=== PATIENT | male | born 1950 | race Two or more races ===

== ENCOUNTER → 2017-09-28 | Outpatient (CLI) | payer BC ==
--- NOTE | 2017-09-28 11:21 | Diagnostic Imaging Report ---
PROCEDURE: X-RAY CHEST, TWO VIEWS COMPARISON: None. INDICATIONS: INFLUENZA FINDINGS: Lungs are well-inflated. There is patchy right middle lobe airspace disease as well as patchy opacity in the periphery of the right upper lobe. No pleural effusion or pneumothorax. Cardiomediastinal contour and pulmonary vasculature are within normal limits. No acute osseous abnormality. CONCLUSION: Patchy right middle and upper lobe airspace opacities concerning for multifocal pneumonia. Followup chest radiograph in 8 weeks is suggested to document resolution. Dictated by: Dov Clements M.D. on 09/28/2017 at 11:30 Electronically approved by: Dov Clements M.D. on 09/28/2017 at 11:30
== END ==
LOC: RAD 10:15 → EDBD 10:15
PROVIDERS: ATTEND Internal Medicine Pulmonary Disease
DX: J11.1 Influenza due to unidentified influenza virus with other respiratory manifestations (principal)
CPT/HCPCS: 71020

== ENCOUNTER 2019-01-10 14:54 | Outpatient (RCR) | payer BC | END 2019-01-17 | LOC: PT 14:54 | PROVIDERS: ATTEND Specialist | DX: M47.812 Spondylosis without myelopathy or radiculopathy, cervical region (principal) ==

== ENCOUNTER 2019-02-09 15:00 | Outpatient (RCR) | payer BC | END 2019-02-17 | LOC: PT 15:00 | PROVIDERS: ATTEND Specialist | DX: M47.812 Spondylosis without myelopathy or radiculopathy, cervical region (principal) | CPT/HCPCS: 97535 ==

== ENCOUNTER → 2020-09-16 | Outpatient (CLI) | payer BC, OTHER ==
[~2020-09-16] MED LIST: COVID-19 VACC, MRNA(MODERNA)/PF 100 MCG/0.5 ML VIAL IM ONE
== END ==
LOC: VACCPMC 10:47
DX: Z23 Encounter for immunization (principal); Z20.828 Contact with and (suspected) exposure to other viral communicable diseases

== ENCOUNTER → 2020-10-23 | Outpatient (CLI) | payer OTHER | END | DRG 951 | LOC: VACCPMC 10:39 | DX: Z23 Encounter for immunization (principal); Z20.822 Contact with and (suspected) exposure to COVID-19 | CPT/HCPCS: 0012A; 91301 ==

== ENCOUNTER → 2021-09-25 | Outpatient (CLI) | payer OTHER | LOC: VACCPMC 09:00 | DX: Z23 Encounter for immunization (principal); Z20.822 Contact with and (suspected) exposure to COVID-19 ==

== ENCOUNTER → 2024-08-31 | Outpatient (REF) | payer BC | LOC: RAD 11:30 | PROVIDERS: ATTEND Internal Medicine Pulmonary Disease | DX: J40 Bronchitis, not specified as acute or chronic (principal) | CPT/HCPCS: 71046 ==